=== PATIENT | male | born 1990 | race Caucasian/White ===

== ENCOUNTER 2016-09-11 01:41 | Emergency (ER) | payer OTHER ==
--- NOTE | 2016-09-11 03:02 | ED ORDER SUMMARY ---
..... Patient: VARINDER MALAVE OrderSheet [facility] VisitID: [id number] [address] [place] [address] 26y, M Registration Date/Time: 09/11/2016 ORDER SHEET Weight: 79.3 kg (stated) Allergies: No Known Drug Allergy GENERAL ORDERS: MEDICATION ORDERS: Pollxwp-Aharyz-Jitfc Pertussis IM 0.5 mL (NOW, per protocol) (03:00 09/11/2016 Arthur Alexis) (Ack 3:15 Axel R.NMarc) (3:25 Axel Hinds) IV FLUIDS: ORDER SHEET NOTES: [Electronically signed by Sg Chaudhary Dr. (03:19 09/11/2016)] [Electronically signed by Awa Mercado R.N. (03:30 09/11/2016)] [Electronically locked/signed by Awa Mercado R.N. (03:30 09/11/2016)]
--- NOTE | 2016-09-11 03:02 | ED CLINICAL REPORT ---
Clinical Report - Physicians/Mid Levels [facility] [address] [place] [address] 09/11/2016 1:41 Patient: VARINDER MALAVE Time Seen: 01:53; initial patient contact. Arrived- By private vehicle. Historian- patient. HISTORY OF PRESENT ILLNESS Chief Complaint: Injury to right forearm. The injury happened just prior to arrival. Occurred at home. The patient sustained a laceration from a broken glass. Patient is experiencing mild pain. Patient denies injury to the head or neck. REVIEW OF SYSTEMS The patient sustained a laceration. No swelling, tingling, numbness, weakness or suspected foreign body. All systems otherwise negative, except as recorded above. PAST HISTORY Drug Poisoning. URI. Anxiety Reaction. Last tetanus immunization was more than 5 years ago. Surgeries: No history of previous surgery. Additional Surgeries: no known surgeries. Medications: None. Allergies: No Known Drug Allergy. SOCIAL HISTORY Never smoker. History of drug use: marijuana. No alcohol use. ADDITIONAL NOTES The nursing notes have been reviewed. PHYSICAL EXAM Vital Signs: 09/11/2016 01:44 BP: 135/90. HR: 71. RR: 18. O2 saturation: 96%. Temp: 97.8 F. Pain level now: 2/10. Have been reviewed. Hypertensive. Heart rate normal. Respiratory rate normal. Temperature normal. Oxygen saturation normal. Skin: Skin warm and dry. Normal skin color. Extremities: Right forearm: deep laceration greater than 5.0 cm. SEE LACERATION PROCEDURE NOTE. Neurovascular intact distally. Extremities otherwise negative. Neuro, Vascular and Tendons: Vascular status intact. Sensation intact. Motor intact. Tendon function intact. Neuro: Oriented X 3. No motor deficit. PROGRESS AND PROCEDURES Laceration Repair: Time: 02:57. Location: right arm. Per protocol, time-out completed immediately before the procedure. Length: 10 cm. Complexity: intermediate (layer closure). Wound depth/shape- subcutaneous and linear. Wound is clean. Distal neuro/vascular/tendon status normal. Anesthesia provided using 2% lidocaine with epi. Prepped with Hibiclens. Wound explored, irrigated and examined to the base in bloodless field extensively with normal saline. Closure of skin: 4-0 nylon (7 sutures). Subcutaneous closure: interrupted 4-0 Vicryl (4 sutures). Post-procedure: he is stable and there are no complications. Bleeding is controlled and neuro-vascular status is intact distal to the wound. Dressing applied. Tetanus immunization given. Estimated blood loss: 5 mL. Disposition: Discharged home in good and improved condition. Condition: good. CLINICAL IMPRESSION Single deep laceration to the right forearm. Complicated repair. Treatment of laceration not delayed. No infection or foreign body present. INSTRUCTIONS Protect wound and keep wound area clean. Change dressing twice daily. You may wash wounds briefly, then dry. Apply bacitracin twice daily. Sutures should be removed in seven days. Your Current Medications: CONTINUE TAKING THE FOLLOWING MEDICATIONS: None*. Follow-up: Screening today revealed the patient's blood pressure to be in the hypertensive range. The patient should follow up with a primary care provider for blood pressure management. Follow-up with: [facility], , , [address], , [place], [id number] Follow up in seven for suture removal. Call for an appointment. (Electronically signed by Sg Chaudhary Dr. 09/11/2016 3:19)
--- NOTE | 2016-09-11 03:02 | ED ORDER SUMMARY ---
..... Patient: VARINDER MALAVE OrderSheet [facility] VisitID: [id number] [address] [place] [address] 26y, M Registration Date/Time: 09/11/2016 ORDER SHEET Weight: 79.3 kg (stated) Allergies: No Known Drug Allergy GENERAL ORDERS: MEDICATION ORDERS: Llrqmup-Bbympj-Rghcp Pertussis IM 0.5 mL (NOW, per protocol) (03:00 09/11/2016 Arthur Alexis) (Ack 3:15 Axel R.NMarc) (3:25 Axel Hinds) IV FLUIDS: ORDER SHEET NOTES: [Electronically signed by Sg Chaudhary Dr. (03:19 09/11/2016)] [Electronically signed by Awa Mercado R.N. (03:30 09/11/2016)] [Electronically locked/signed by Awa Mercado R.N. (03:30 09/11/2016)]
--- NOTE | 2016-09-11 03:02 | ED NURSING NOTES ---
Clinical Report - Nurses [place] [facility] [address] [place] [address] 09/11/2016 1:41 Patient: VARINDER MALAVE TRIAGE Triage time 01:40. Acuity: LEVEL 4. Chief Complaint: INJURY TO RIGHT WRIST. --01:49 Awa Mercado R.N. 01:44 09/11/16. BP: 135/90 taken on the left arm, while lying. HR: 71 (regular and normal rate). RR: 18 (regular and unlabored). O2 saturation: 96% on room air. Temp: 97.8 F (oral). Pain level now: 06/13. --01:49 Awa Mercado R.N. Weight: 79.3 kg stated. Height/Length: 71 inches Per Patient. BMI: 24.4. --01:48 Awa Mercado R.N. Medications None. --01:46 Awa Mercado R.N. Allergies No Known Drug Allergy. --01:46 Awa Mercado R.N. History Arrived by private vehicle. Historian: patient. Accompanied by family. Primary physician (none). This occurred just prior to arrival. He sustained a laceration. ( pt describes having "night terrors" and woke up to broken mirror and right wrist laceration. bleeding controlled.). No neck pain, weakness or numbness. Treatment HEALTH UNIT SUPERVISOR: Applied bandage. PAST MEDICAL HX: No history of diabetes mellitus, hypertension, heart disease or lung disease. Tetanus status: up-to-date. Immunizations: up-to-date. SOCIAL HX: Never smoker. Alcohol use. History of occasional drug use: marijuana. Recently used drugs today. ABUSE ASSESSMENT: No report of abuse. SELF HARM ASSESSMENT: A self harm assessment was performed. The patient answered "no" to the question "Have you recently felt down, depressed, or hopeless?", "Have you noticed less interest or pleasure in doing things?", "Do you have thoughts of harming or killing yourself?", "Are you here because you tried to hurt yourself?", "Have you ever tried to hurt yourself before today?", "Have you recently had thoughts about harming or killing others?" and "Do you have any dangerous items in your possession?". --01:49 Awa Mercado R.N. PROBLEMS: Drug Poisoning. URI. Anxiety Reaction. --01:46 Awa Mercado R.N. ADDITIONAL SURGERIES: no known surgeries. Interventions ID band on patient. --01:49 Awa Mercado R.N. PHYSICAL ASSESSMENT Ambulatory to room. GENERAL / NEURO / PSYCH: Oriented X 4. Alert. Appears in no acute distress. EXTREMITIES: Capillary refill is less than 2 seconds in the extremities. Extremity pulses are within normal limits. Extremities exhibit normal ROM. Neuro-vascular status intact to the extremity. Right wrist: 4.0 cm laceration with controlled bleeding located in the radial aspect of the wrist (DIRECTOR SOFTWARE intact). SKIN: Skin is warm and dry. --01:51 Awa Mercado R.N. NURSING PROGRESS NOTES Two patient identifiers checked. Call light placed in reach. Side rails up x 1. Bed placed in lowest position. Brakes of bed on. --01:51 Awa Mercado R.N. Patient ready for evaluation- chart flagged. --01:51 Awa Mercado R.N. WOUND REPAIR: Wound repair performed by ED physician. Preparation: suture tray set-up. Procedure: wound repaired with sutures (1 suture packet used for wound repair). --03:17 McQuoid Shelly, ER Tech1 03:15. Applied dressing consisting of adaptic, following the application of antibiotic ointment (bacitracin). Secured with tape, kerlix and petra. --03:17 McQuoid, Shelly, ER Tech1 03:20 09/11/2016 OSCUWQU-YXTERB-TGCWP PERTUSSIS IM 0.5 mL given. (Lot#: [id number], expiration date: 02/08/2018, Inner Tube Cutter: sanofi pasteur). Given in the left deltoid. Allergies verified and confirmed 5 rights. Vaccine information statement provided to the patient. --03:25 Awa Mercado R.N. <<STRICKEN ENTRY-- WOUND REPAIR: Wound repair performed by ED physician. Preparation: suture tray set-up with 1% lidocaine. Wound cleansed per physician and irrigated per physician. Procedure: wound repaired with sutures. --03:29 Awa Mercado R.N. --END STRIKE>> Correction --03:30 Awa Mercado R.N. DISPOSITION / DISCHARGE Condition at departure: improved. No learning barriers present. Discharge instructions provided and reviewed with the patient and family. Reviewed wound care instructions. He has no activity restrictions. Written instructions provided in Rwandan. The patient was discharged home and accompanied by family. He left the Emergency Department ambulatory and via private vehicle. Parent driving. --03:28 Awa Mercado R.N. 03:20 09/11/16. BP: 121/67. HR: 70. RR: 18. O2 saturation: 99% on room air. Temp: deferred. Pain level now: 06/13. --03:28 Awa Mercado R.N. Departure time: 321. --03:29 Awa Mercado R.N. Locked/Released at 09/11/2016 3:30 by Awa Mercado R.N.
--- NOTE | 2016-09-11 03:02 | ED CLINICAL REPORT ---
Clinical Report - Physicians/Mid Levels [facility] [address] [place] [address] 09/11/2016 1:41 Patient: VARINDER MALAVE Time Seen: 01:53; initial patient contact. Arrived- By private vehicle. Historian- patient. HISTORY OF PRESENT ILLNESS Chief Complaint: Injury to right forearm. The injury happened just prior to arrival. Occurred at home. The patient sustained a laceration from a broken glass. Patient is experiencing mild pain. Patient denies injury to the head or neck. REVIEW OF SYSTEMS The patient sustained a laceration. No swelling, tingling, numbness, weakness or suspected foreign body. All systems otherwise negative, except as recorded above. PAST HISTORY Drug Poisoning. URI. Anxiety Reaction. Last tetanus immunization was more than 5 years ago. Surgeries: No history of previous surgery. Additional Surgeries: no known surgeries. Medications: None. Allergies: No Known Drug Allergy. SOCIAL HISTORY Never smoker. History of drug use: marijuana. No alcohol use. ADDITIONAL NOTES The nursing notes have been reviewed. PHYSICAL EXAM Vital Signs: 09/11/2016 01:44 BP: 135/90. HR: 71. RR: 18. O2 saturation: 96%. Temp: 97.8 F. Pain level now: 2/10. Have been reviewed. Hypertensive. Heart rate normal. Respiratory rate normal. Temperature normal. Oxygen saturation normal. Skin: Skin warm and dry. Normal skin color. Extremities: Right forearm: deep laceration greater than 5.0 cm. SEE LACERATION PROCEDURE NOTE. Neurovascular intact distally. Extremities otherwise negative. Neuro, Vascular and Tendons: Vascular status intact. Sensation intact. Motor intact. Tendon function intact. Neuro: Oriented X 3. No motor deficit. PROGRESS AND PROCEDURES Laceration Repair: Time: 02:57. Location: right arm. Per protocol, time-out completed immediately before the procedure. Length: 10 cm. Complexity: intermediate (layer closure). Wound depth/shape- subcutaneous and linear. Wound is clean. Distal neuro/vascular/tendon status normal. Anesthesia provided using 2% lidocaine with epi. Prepped with Hibiclens. Wound explored, irrigated and examined to the base in bloodless field extensively with normal saline. Closure of skin: 4-0 nylon (7 sutures). Subcutaneous closure: interrupted 4-0 Vicryl (4 sutures). Post-procedure: he is stable and there are no complications. Bleeding is controlled and neuro-vascular status is intact distal to the wound. Dressing applied. Tetanus immunization given. Estimated blood loss: 5 mL. Disposition: Discharged home in good and improved condition. Condition: good. CLINICAL IMPRESSION Single deep laceration to the right forearm. Complicated repair. Treatment of laceration not delayed. No infection or foreign body present. INSTRUCTIONS Protect wound and keep wound area clean. Change dressing twice daily. You may wash wounds briefly, then dry. Apply bacitracin twice daily. Sutures should be removed in seven days. Your Current Medications: CONTINUE TAKING THE FOLLOWING MEDICATIONS: None*. Follow-up: Screening today revealed the patient's blood pressure to be in the hypertensive range. The patient should follow up with a primary care provider for blood pressure management. Follow-up with: [facility], , , [address], , [place], [id number] Follow up in seven for suture removal. Call for an appointment. (Electronically signed by Sg Chaudhary Dr. 09/11/2016 3:19)
--- NOTE | 2016-09-11 03:02 | ED NURSING NOTES ---
Clinical Report - Nurses [facility] [address] [place] [address] 09/11/2016 1:41 Patient: VARINDER MALAVE TRIAGE Triage time 01:40. Acuity: LEVEL 4. Chief Complaint: INJURY TO RIGHT WRIST. --01:49 Awa Mercado R.N. 01:44 09/11/16. BP: 135/90 taken on the left arm, while lying. HR: 71 (regular and normal rate). RR: 18 (regular and unlabored). O2 saturation: 96% on room air. Temp: 97.8 F (oral). Pain level now: 06/13. --01:49 Awa Mercado R.N. Weight: 79.3 kg stated. Height/Length: 71 inches Per Patient. BMI: 24.4. --01:48 Awa Mercado R.N. Medications None. --01:46 Awa Mercado R.N. Allergies No Known Drug Allergy. --01:46 Awa Mercado R.N. History Arrived by private vehicle. Historian: patient. Accompanied by family. Primary physician (none). This occurred just prior to arrival. He sustained a laceration. ( pt describes having "night terrors" and woke up to broken mirror and right wrist laceration. bleeding controlled.). No neck pain, weakness or numbness. Treatment MANAGER CONSUMER INSIGHTS: Applied bandage. PAST MEDICAL HX: No history of diabetes mellitus, hypertension, heart disease or lung disease. Tetanus status: up-to-date. Immunizations: up-to-date. SOCIAL HX: Never smoker. Alcohol use. History of occasional drug use: marijuana. Recently used drugs today. ABUSE ASSESSMENT: No report of abuse. SELF HARM ASSESSMENT: A self harm assessment was performed. The patient answered "no" to the question "Have you recently felt down, depressed, or hopeless?", "Have you noticed less interest or pleasure in doing things?", "Do you have thoughts of harming or killing yourself?", "Are you here because you tried to hurt yourself?", "Have you ever tried to hurt yourself before today?", "Have you recently had thoughts about harming or killing others?" and "Do you have any dangerous items in your possession?". --01:49 Awa Mercado R.N. PROBLEMS: Drug Poisoning. URI. Anxiety Reaction. --01:46 Awa Mercado R.N. ADDITIONAL SURGERIES: no known surgeries. Interventions ID band on patient. --01:49 Awa Mercado R.N. PHYSICAL ASSESSMENT Ambulatory to room. GENERAL / NEURO / PSYCH: Oriented X 4. Alert. Appears in no acute distress. EXTREMITIES: Capillary refill is less than 2 seconds in the extremities. Extremity pulses are within normal limits. Extremities exhibit normal ROM. Neuro-vascular status intact to the extremity. Right wrist: 4.0 cm laceration with controlled bleeding located in the radial aspect of the wrist (PLATER PRINTED CIRCUIT BOARD PANELS intact). SKIN: Skin is warm and dry. --01:51 Awa Mercado R.N. NURSING PROGRESS NOTES Two patient identifiers checked. Call light placed in reach. Side rails up x 1. Bed placed in lowest position. Brakes of bed on. --01:51 Awa Mercado R.N. Patient ready for evaluation- chart flagged. --01:51 Awa Mercado R.N. WOUND REPAIR: Wound repair performed by ED physician. Preparation: suture tray set-up. Procedure: wound repaired with sutures (1 suture packet used for wound repair). --03:17 McQuoid Shelly, ER Tech1 03:15. Applied dressing consisting of adaptic, following the application of antibiotic ointment (bacitracin). Secured with tape, kerlix and petra. --03:17 McQuoid, Shelly, ER Tech1 03:20 09/11/2016 KIKFUHA-WJLHAE-FKXLG PERTUSSIS IM 0.5 mL given. (Lot#: [id number], expiration date: 02/08/2018, Experimental Plastics Fabricator: sanofi pasteur). Given in the left deltoid. Allergies verified and confirmed 5 rights. Vaccine information statement provided to the patient. --03:25 Awa Mercado R.N. <<STRICKEN ENTRY-- WOUND REPAIR: Wound repair performed by ED physician. Preparation: suture tray set-up with 1% lidocaine. Wound cleansed per physician and irrigated per physician. Procedure: wound repaired with sutures. --03:29 Awa Mercado R.N. --END STRIKE>> Correction --03:30 Awa Mercado R.N. DISPOSITION / DISCHARGE Condition at departure: improved. No learning barriers present. Discharge instructions provided and reviewed with the patient and family. Reviewed wound care instructions. He has no activity restrictions. Written instructions provided in Venezuelan. The patient was discharged home and accompanied by family. He left the Emergency Department ambulatory and via private vehicle. Parent driving. --03:28 Awa Mercado R.N. 03:20 09/11/16. BP: 121/67. HR: 70. RR: 18. O2 saturation: 99% on room air. Temp: deferred. Pain level now: 06/13. --03:28 Awa Mercado R.N. Departure time: 321. --03:29 Awa Mercado R.N. Locked/Released at 09/11/2016 3:30 by Awa Mercado R.N.
--- NOTE | 2016-09-11 03:31 | ED MAR SUMMARY ---
..... Medication Administration Record [facility] [address] [place] [address] Patient: VARINDER MALAVE Visit ID: [id number] 26y, M Weight: 79.3 kg Height/Length: 71 in BMI: 24.4 ALLERGIES: No Known Drug Allergy Given 03:20 09/11/2016 Awa Mercado R.N. Medication Administered: TTWFDSH-MAPCPQ-UBGYT PERTUSSIS [IM], Dose: 0.5 mL IM. Medication Ordered: Sksngdk-Vshflx-Lznan Pertussis IM 0.5 mL (NOW, per protocol).
--- NOTE | 2016-09-11 03:31 | ED DISCHARGE INSTRUCTIONS ---
Patient: VARINDER MALAVE General Instructions [facility] VisitID: [id number] [address] [place] [address] 26y, M Registration Date/Time: 09/11/2016 Single deep laceration to the right forearm. Complicated repair. Treatment of laceration not delayed. No infection or foreign body present. INSTRUCTIONS Protect wound and keep wound area clean. Change dressing twice daily. You may wash wounds briefly, then dry. Apply bacitracin twice daily. Sutures should be removed in seven days. Your Current Medications: CONTINUE TAKING THE FOLLOWING MEDICATIONS: None*. Follow-up: Screening today revealed the patient's blood pressure to be in the hypertensive range. The patient should follow up with a primary care provider for blood pressure management. Follow-up with: [facility], , , [address], , [place], [address] Follow up in seven for suture removal. Call for an appointment. ADDITIONAL INFORMATION Laceration (All Closures) Alaceration is a cut through the skin. This will usually require stitches (sutures) or berlin if it is deep. Minor cuts may be treated with a surgical tape closure orskin glue. Home care The following guidelines will help you care for your laceration at home: Extremity, face, or trunk wounds Keep the wound clean and dry. If a bandage was applied and it becomes wet or dirty, replace it. Otherwise, leave it in place for the first 24 hours. If stitches or berlin were used, clean the wound daily. After removing the bandage, wash the area with soap and water. Use a wet cotton swab to loosen and remove any blood or crust that forms. The doctor may prescribe an antibiotic cream or ointment to prevent infection. Do not stop taking this medication until you have finished the prescribed course or the doctor tells you to stop. The doctor may also prescribe medications for pain. Follow the doctors instructions for taking these medications. You may remove the bandage to shower as usual after the first 24 hours, but do not soak the area in water (no swimming) until the stitches or berlin are removed. If surgical tape was used, keep the area clean and dry. If it becomes wet, blot it dry with a towel. If skin glue was used, do not scratch, rub, or pick at the adhesive film. Do not place tape directly over the film. Do not apply liquid, ointment, or creams to the wound while the film is in place. Do not clean the wound with peroxide and do not apply ointments. Avoid activities that cause heavy sweating until the film has fallen off. Protect the wound from prolonged exposure to sunlight or tanning lamps. You may shower as usual but do not soak the wound in water (no baths or swimming). The film will fall off by itself in 510 days. Scalp wounds During the first two days, you may carefully rinse your hair in the shower to remove blood, glass or dirt particles. After two days, you may shower and shampoo your hair normally. Do not soak your scalp in the tub or go swimming until the stitches or berlin have been removed. Talk with your doctor before applying any antibiotic ointment to the wound. Mouth wounds Eat soft foods to reduce pain. If the cut is inside of your mouth, clean by rinsing after each meal and at bedtime with a mixture of equal parts water and hydrogen peroxide (do not swallow!). Or, you can use a cotton swab to directly apply hydrogen peroxide onto the cut. Mouth wounds can be painful when eating. You may use an [id number]-ggr-[id number] local numbing solution for pain relief. If this is not available, you may use any numbing solution for teething babies. You may apply this directly to the sores with a cotton-tip swab or with your finger. Follow-up care Follow up with your health care provider. Most skin wounds heal within ten days. Mouth and facial wounds heal within five days. However, even with proper treatment, a wound infection may sometimes occur. Therefore, you should check the wound daily for signs of infection listed below. Stitches should be removed from the face within five days; stitches and berlin should be removed from other parts of the body within 714 days. If dissolving stitches were used in the mouth, these will fall out or dissolve without the need for removal. If tape closures were used, remove them yourself if they have not fallen off after 7 days. Ifskin glue was used, the film will fall off by itself in 510 days. When to seek medical care Get prompt medical attention if any of these occur: Bleeding not controlled by direct pressure Signs of infection, including increasing pain in the wound, increasing wound redness or swelling, or pus coming from the wound Fever of 100.4F (38C) or higher, or as directed by your health care provider Stitches or berlin come apart or fall out or surgical tape falls off before 7 days Wound edges re-open Bandage Change If the bandage becomes wet or dirty, replace it. Otherwise, leave it in place for the first 24 hours. Then once a day: After removing the bandage, wash the area with soap and water. Use a wet cotton swab to loosen and remove any blood or crust that forms on the wound. After cleaning, apply a thin layer of antibiotic ointment or cream. Reapply the bandage. You may shower as usual after the first 24 hours. If the bandage is on an arm or leg, cover it with a plastic bag rubber banded at both ends before showering. No tub baths or swimming until the bandage is removed and the wound healed (at least 7 days). You have been given the following additional information: Laceration, All Dressing Change (Electronically signed by Sg Chaudhary Dr. 09/11/2016 3:19)
--- NOTE | 2016-09-11 03:31 | ED MED RECONCILIATION SUMMARY ---
Patient: VARINDER MALAVE Medication Reconciliation Report [facility] VisitID: [id number] [address] [place] [address] 26y, M Registration Date/Time: 09/11/2016 Weight: 79.3 kg Height/Length: 71 in. BMI: 24.4 ALLERGIES: No Known Drug Allergy The patient's Home Medications are listed below: NONE. The source(s) of the original Home Medication information: Not obtained. The following Medications were given to the patient in the Emergency Department: [id number] PERTUSSIS [IM] IM 0.5 mL, administered: 09/11/2016 3:20:00 AM The following Medications were prescribed to the patient: None.
--- NOTE | 2016-09-11 03:31 | ED MED RECONCILIATION SUMMARY ---
Patient: VARINDER MALAVE Medication Reconciliation Report [facility] VisitID: [id number] [address] [place] [address] 26y, M Registration Date/Time: 09/11/2016 Weight: 79.3 kg Height/Length: 71 in. BMI: 24.4 ALLERGIES: No Known Drug Allergy The patient's Home Medications are listed below: NONE. The source(s) of the original Home Medication information: Not obtained. The following Medications were given to the patient in the Emergency Department: [id number] PERTUSSIS [IM] IM 0.5 mL, administered: 09/11/2016 3:20:00 AM The following Medications were prescribed to the patient: None.
--- NOTE | 2016-09-11 03:31 | ED MAR SUMMARY ---
..... Medication Administration Record [facility] [address] [place] [address] Patient: VARINDER MALAVE Visit ID: [id number] 26y, M Weight: 79.3 kg Height/Length: 71 in BMI: 24.4 ALLERGIES: No Known Drug Allergy Given 03:20 09/11/2016 Awa Mercado R.N. Medication Administered: [id number] PERTUSSIS [IM], Dose: 0.5 mL IM. Medication Ordered: [id number]-Lyyptr-[id number] Pertussis IM 0.5 mL (NOW, per protocol).
== END 2016-09-11 03:22 | disposition home or self-care (01) ==
LOC: ED SRH 01:41
DX: S51.811A Laceration without foreign body of right forearm, initial encounter (principal); W25.XXXA Contact with sharp glass, initial encounter; Y93.89 Activity, other specified; Y92.019 Unspecified place in single-family (private) house as the place of occurrence of the external cause; Y99.9 Unspecified external cause status; Z23 Encounter for immunization